=== PATIENT | male | born 1955 | race Hispanic/Latino ===

== ENCOUNTER 2022-12-12 08:06 | Day surgery (SDC) | payer MEDICARE ==
[2022-12-06 13:48] LABS: BASOPHILS % (AUTO) 0.6 % (0.0-5.0); EOSINOPHILS % (AUTO) 2.9 % (0.0-8.0); LYMPHOCYTES % (AUTO) 21.1 % (21.0-51.0); MEAN CORPUSCULAR HEMOGLOBIN 30.2 pg (27.0-33.0); MEAN CORPUSCULAR HGB CONC 32.6 g/dL (32.0-36.0); MEAN CORPUSCULAR VOLUME 92.6 fL (79-99); MONOCYTES % (AUTO) 8.2 % (3.0-13.0); NEUTROPHILS % (AUTO) 66.9 % (40.0-77.0); PLATELET COUNT (AUTO) 192 K/uL (130-400); RED BLOOD CELL COUNT(AUTO) 3.78 MIL/uL (4.50-6.20); RED CELL DISTRIBUTION WIDTH 12.9 % (11.0-15.5); WHITE BLOOD COUNT (AUTO) 9.4 K/uL (4.8-10.8)
[2022-12-06 14:01] LABS: PROTHROMBIN TIME 10.9 SEC (9.6-11.6)
[2022-12-06 14:02] LABS: PARTIAL THROMBOPLASTIN TIME 26.4 SEC (26.3-35.5)
[2022-12-06 14:12] VITALS: BP 125/71
[2022-12-06 14:29] LABS: CREATININE 3.5 mg/dL (0.5-1.5); POTASSIUM 5.9 mmol/L (3.5-5.1)
[2022-12-12] VITALS (18 sets, daily range): BP systolic 125–161; BP diastolic 65–87
[~2022-12-12] VITALS: Ht 160 cm; Wt 52.3 kg
[~2022-12-12 08:06] MED LIST: AMLO-258 PO; ASPI-1443 PO; ATOR40TA71 PO; CHOL100046 PO; ERGO500093 PO; FINA5TAB41 PO; LEVAQUIN PO; LEVE500T19 PO; MEMA5TAB42 PO; METO-408 PO; PANT40TA54 PO; PHEN100C9 PO; SENN-180 PO; SODI650T PO; TAMS-1 PO; [UNRECOGNIZED DRUG - OTHER] PO
[2022-12-12] MEDS ORDERED: GENTAMICIN 80 MG/NS 100 ML PB 100 ML IV ONE (08:27)
[2022-12-12] MEDS ORDERED: CEFTRIAXONE 1G VIAL ONE (08:27)
[2022-12-12] MEDS ORDERED: LACTATED RINGERS 1000ML 1,000 ML IV ONE (08:27)
[2022-12-12 09:55] LABS: CREATININE 4.2 mg/dL (0.5-1.5); POTASSIUM 5.1 mmol/L (3.5-5.1)
[2022-12-12] MEDS ORDERED: CEFTRIAXONE 1G VIAL IVPB ONE (10:10)
[2022-12-12] MEDS ORDERED: LIDOCAINE PF 100MG/5ML (2%) SYRINGE 5ML ONE ×2 (10:11→10:13)
[2022-12-12] MEDS ORDERED: SUCCINYLCHOLINE 200MG/10ML SYR ONE (10:11)
[2022-12-12] MEDS ORDERED: DEXAMETHASONE SOD PHOSPHATE 10MG/ML 1ML VIAL ONE (10:11)
[2022-12-12] MEDS ORDERED: GLYCOPYRROLATE 1 MG/5 ML SYRINGE ONE (10:12)
[2022-12-12] MEDS ORDERED: PROPOFOL 10 MG/ML 20ML VIAL IV ONE (10:12)
[2022-12-12] MEDS ORDERED: NEOSTIGMINE 5MG/5ML SYR IV ONE (10:12)
[2022-12-12] MEDS ORDERED: ONDANSETRON 4MG INJ ONE (10:12)
[2022-12-12] MEDS ORDERED: FENTANYL CITRATE PF 50 MCG/1 ML 2ML VIAL ONE (10:13)
[2022-12-12] MEDS ORDERED: ROCURONIUM 10MG/1ML SYR 10 MG/ML ML ONE (10:13)
[2022-12-12] MEDS ORDERED: OPIUM/BELLADONNA ALKALOIDS 1 EACH SUPP.RECT RC ONE (12:15)
== END 2022-12-12 13:40 | disposition home or self-care (01) ==
LOC: DAH 08:06
PROVIDERS: ATTEND Urology
DX: N40.1 Benign prostatic hyperplasia with lower urinary tract symptoms (principal); Z20.822 Contact with and (suspected) exposure to COVID-19; R33.8 Other retention of urine; I12.9 Hypertensive chronic kidney disease with stage 1 through stage 4 chronic kidney disease, or unspecified chronic kidney disease; N18.4 Chronic kidney disease, stage 4 (severe); E78.5 Hyperlipidemia, unspecified; Z98.890 Other specified postprocedural states; Z86.73 Personal history of transient ischemic attack (TIA), and cerebral infarction without residual deficits; Z90.49 Acquired absence of other specified parts of digestive tract; Z79.899 Other long term (current) drug therapy; Z79.01 Long term (current) use of anticoagulants
CPT/HCPCS: 71045; 87426; 80185; 80048 ×2; 85025; 85610; 85730; 36415 ×2; 52648; A6260; A4663; J7030; A4354; J7120; J3010; J0330; J3490; J1100; J2710; J2001 ×2; J0696 ×2; J2704; J2405; J1580; A4315; A4358; A4930; A4215; A4223; A4222; A4221; A4600

== ENCOUNTER 2024-02-02 10:10 | Day surgery (SDC) | payer MEDICARE ==
[2024-01-30 15:34] LABS: BASOPHILS # (AUTO) 0.05 K/uL (0.00-0.20); BASOPHILS % (AUTO) 0.6 % (0.0-5.0); EOSINOPHILS # (AUTO) 0.17 K/uL (0.00-0.70); EOSINOPHILS % (AUTO) 2.1 % (0.0-8.0); HEMATOCRIT 33.7 % (42-54); IMMATURE GRANULOCYTE ABSOLUTE 0.03 K/uL (0-1); LYMPHOCYTES # (AUTO) 2.5 K/uL (1.0-4.8); LYMPHOCYTES % (AUTO) 30.5 % (21.0-51.0); MEAN CORPUSCULAR HEMOGLOBIN 32.8 pg (27.0-33.0); MEAN CORPUSCULAR HGB CONC 33.5 g/dL (32.0-36.0); MONOCYTES # (AUTO) 0.8 K/uL (0.1-1.0); MONOCYTES % (AUTO) 9.5 % (3.0-13.0); NEUTROPHILS # (AUTO) 4.6 K/uL (1.8-7.7); NEUTROPHILS % (AUTO) 56.9 % (40.0-77.0); PLATELET COUNT (AUTO) 125 K/uL (130-400); RED BLOOD CELL COUNT(AUTO) 3.44 MIL/uL (4.50-6.20); RED CELL DISTRIBUTION WIDTH 12.7 % (11.0-15.5); WHITE BLOOD COUNT (AUTO) 8.1 K/uL (4.8-10.8)
[2024-01-30 15:38] VITALS: BP 176/88; PULSE 78; RESP 18
[2024-01-30 15:47] LABS: CREATININE 5.9 mg/dL (0.5-1.3); POTASSIUM 4.9 mmol/L (3.5-5.1)
[2024-01-30 15:49] LABS: INR 1.04 (0.85-1.15); PROTHROMBIN TIME 11.2 SEC (9.6-11.6)
[2024-01-30 15:50] LABS: PARTIAL THROMBOPLASTIN TIME 24.5 SEC (26.3-35.5)
[2024-02-02] VITALS (17 sets, daily range): BP systolic 111–173; BP diastolic 61–91; PULSE 63–73; RESP 11–20
[~2024-02-02] VITALS: Ht 162.6 cm; Wt 49.7 kg
[~2024-02-02 10:10] MED LIST changes: -CHOL100046 PO; -FINA5TAB41 PO; -LEVAQUIN PO; +MEMA5TAB16 PO; -MEMA5TAB42 PO; -SENN-180 PO; +SENN8.6T32 PO; +SEVE2.4P3 PO; -SODI650T PO
[2024-02-02] MEDS ORDERED: CEFAZOLIN SODIUM 2 GM VIAL ONE (10:13)
[2024-02-02] MEDS ORDERED: LIDOCAINE PF 100MG/5ML (2%) SYRINGE 5ML ONE (11:07)
[2024-02-02] MEDS ORDERED: MIDAZOLAM HCL 1 MG/ML 2ML VIAL ONE (11:07)
[2024-02-02] MEDS ORDERED: DEXAMETHASONE SOD PHOSPHATE 10MG/ML 1ML VIAL ONE (11:07)
[2024-02-02] MEDS ORDERED: GLYCOPYRROLATE 0.2 MG/ML 5 ML VIAL ONE (11:08)
[2024-02-02] MEDS ORDERED: NEOSTIGMINE METHYLSULFATE 1MG/ML IV ONE (11:08)
[2024-02-02] MEDS ORDERED: PROPOFOL 10 MG/ML 20ML VIAL IV ONE (11:08)
[2024-02-02] MEDS ORDERED: ONDANSETRON 4MG INJ ONE (11:08)
[2024-02-02] MEDS ORDERED: SUCCINYLCHOLINE CHLORIDE 20 MG/ML 10 ML VIAL ONE (11:09)
[2024-02-02] MEDS ORDERED: FENTANYL CITRATE PF 50 MCG/1 ML 2ML VIAL ONE (11:09)
[2024-02-02] MEDS ORDERED: ROCURONIUM BROMIDE 10MG/1ML 5ML VL ONE ×2 (11:09→13:37)
[2024-02-02] MEDS: 0.9% NACL 500ML IV.SOLN 500 ML IV ONE (11:09)
[2024-02-02] MEDS ORDERED: CEFAZOLIN SODIUM 1 GM VIAL ONE (11:34)
[2024-02-02] MEDS ORDERED: LIDOCAINE HCL 1% 20 ML VIAL ONE (11:45)
[2024-02-02] MEDS ORDERED: BUPIVACAINE/PF 0.5% 30ML VIAL ONE (11:45)
[2024-02-02] MEDS ORDERED: KETAMINE 50MG/ML SYRINGE 50 MG/ML DISP.SYRIN ONE (12:01)
[2024-02-02] MEDS ORDERED: SUGAMMADEX SODIUM 200 MG/2 ML VIAL IV ONE (12:07)
[2024-02-02 12:29] LABS: CREATININE 6.4 mg/dL (0.5-1.3); POTASSIUM 5.5 mmol/L (3.5-5.1)
[2024-02-02] MEDS: CEFAZOLIN SODIUM 2 GM VIAL IVPB ONE (12:50)
[2024-02-02] MEDS ORDERED: PROTAMINE SULFATE 10 MG/ML 25ML VIAL IV ONE (13:50)
[2024-02-02] MEDS ORDERED: HEPARIN 10,000 UNIT/10ML (1,000 UNIT/ML) VIAL ONE (13:50)
== END 2024-02-02 16:20 | disposition home or self-care (01) ==
LOC: DAH 10:10
PROVIDERS: ATTEND Thoracic Surgery (Cardiothoracic Vascular Surgery)
DX: I12.0 Hypertensive chronic kidney disease with stage 5 chronic kidney disease or end stage renal disease (principal); N18.6 End stage renal disease; E78.5 Hyperlipidemia, unspecified; I10 Essential (primary) hypertension; Z86.16 Personal history of COVID-19; Z86.73 Personal history of transient ischemic attack (TIA), and cerebral infarction without residual deficits
CPT/HCPCS: 80048 ×2; 85025; 85610; 85730; 86850 ×2; 86900 ×2; 86901 ×2; 36415 ×2; 71045; 93005; 36821; A6260; J2720; A4223 ×2; A4600; J7030; J7040; J3010; J0690 ×4; J1100; J0330; J3490 ×4; J2001; J1644 ×3; J2250; J2704; J2405; J2710; J0665 ×2; G0168; A4649 ×3; C1713 ×2; A4930 ×2; A4213; A4222; A4221; A4663; A4216; A4606